=== PATIENT | female | born 1990 | race Caucasian/White ===

== ENCOUNTER 2024-02-22 13:54 | Outpatient (CLI) | payer MEDICAID, SELFPAY | END 2024-02-22 13:55 | disposition home or self-care (01) | LOC: NFLDREF 13:57 | PROVIDERS: Visit Provider Midwife | DX: E06.3 Autoimmune thyroiditis (principal) | CPT/HCPCS: 84443 ==

== ENCOUNTER 2024-03-16 12:16 | Outpatient (CLI) | payer MEDICAID, SELFPAY ==
[2024-03-16 12:35] VITALS: TEMP 36.7
[2024-03-16 12:41] VITALS: BP 99/58; PULSE 73
[2024-03-16 12:57] LABS: Amnisure Rom* Negative
--- NOTE | 2024-03-16 13:40 | PC.OBNST ---
NST Note NST Note Start: 03/16/24 11:25 Freq: ONCE Status: Complete Protocol: Document 03/16/24 13:20 PORTC (Rec: 03/16/24 13:40 PORTC Desktop) NST Note 3 Para (# of births) 2 EDC 06/16/24 Gestational Age In Weeks & Days 26 Weeks & 6 Days Patient Presented with Complaint(s) of Leaking fluid Reactive Yes Appropriate for Gestational Age Yes RN Drake Moss RN Date 03/16/24 Reactive Yes Appropriate for Gestational Age Yes THOMAS Orellana RN Date 03/16/24 OB NST charge Yes Complete NST Note via Write Note Yes The provider's electronic signature indicates the NST is reactive/appropriate for gestational age. *Note to provider: If an addendum is required, open the patient's chart and click on the note under the Nurse/Allied Health tab.
== END 2024-03-16 13:20 | disposition home or self-care (01) ==
LOC: OB OUT 12:16 → OB 12:16
PROVIDERS: Visit Provider Advanced Practice Midwife
DX: O47.02 False labor before 37 completed weeks of gestation, second trimester (principal); Z3A.26 26 weeks gestation of pregnancy
CPT/HCPCS: 59025; 84112; G0463

== ENCOUNTER 2024-03-21 13:15 | Outpatient (CLI) | payer MEDICAID, SELFPAY | END 2024-03-21 13:16 | disposition home or self-care (01) | PROVIDERS: Visit Provider Midwife | DX: Z34.92 Encounter for supervision of normal pregnancy, unspecified, second trimester (principal); Z3A.27 27 weeks gestation of pregnancy; E06.3 Autoimmune thyroiditis | CPT/HCPCS: 84439; 84443; 84481; 86376; 86592 ==

== ENCOUNTER 2024-05-12 10:01 | Outpatient (CLI) | payer MEDICAID, SELFPAY | END 2024-05-12 10:02 | disposition home or self-care (01) | LOC: NFLDREF 05-16 15:36 | PROVIDERS: PCP Midwife; Visit Provider Midwife | DX: E06.3 Autoimmune thyroiditis (principal) | CPT/HCPCS: 82728; 84439; 84443; 84481; 86376 ==

== ENCOUNTER 2024-05-22 13:36 | Outpatient (CLI) | payer MEDICAID, SELFPAY ==
[2024-05-23 14:13] LABS: Strep B DNA Probe Negative (Negative)
[2024-05-23 14:19] LABS: Strep B Susceptibility Needed? No
== END 2024-05-22 13:37 | disposition home or self-care (01) ==
LOC: NFLDREF 13:59
PROVIDERS: Visit Provider Obstetrics & Gynecology
DX: Z34.93 Encounter for supervision of normal pregnancy, unspecified, third trimester (principal); Z3A.36 36 weeks gestation of pregnancy
CPT/HCPCS: 87081; 87653

== ENCOUNTER 2024-06-20 10:32 | Inpatient (IN) | payer MEDICAID, SELFPAY ==
[2024-06-20] VITALS (12 sets, daily range): BP systolic 94–116; BP diastolic 56–78; PULSE 72–100; RESP 18; TEMP 36.3–36.4; O2SAT 98; BMI 37.4
[2024-06-20 11:28] LABS: Basophils Percent Auto 0.2 % (0.0-3.0); Eosinophils Percent Auto 0.2 % (0.0-7.0); Hematocrit 35.9 % (33.0-51.0); Immature Granulocytes Pct Auto 0.5 %; Lymphocytes Percent Auto 15.1 % (20-44); Mean Corpuscular HGB Conc 33 gm/dL (32-36); Mean Corpuscular Hemoglobin 31 pg (26-34); Mean Corpuscular Volume 94 fL (80-100); Monocytes Percent Auto 6.7 % (0.0-11.0); Neutrophils Percent Auto 77.3 % (42.0-72.0); Platelet Count* 143 K/uL (140-440); RDW Coefficient of Variation % 14.4 % (11.5-15.5); Red Blood Count 3.84 m/uL (4.00-5.20); White Blood Count* 12.75 K/uL (4.50-11.00)
--- NOTE | 2024-06-20 11:29 | W.PM.LDBA ---
Subjective History of Present Illness Narrative: Paige is a 33 yo ar 40 4/7 weeks gestation being admitted to Labor and Delivery for spontaneous onset of labor. She reports her labor started this morning after she woke up. She was seen in clinic yesterday for a clinic appointment and she had a membrane sweep. She said she didn't think she was in labor because she has never gone into labor on her own. She felt she had a period where they spaced out but then again are becoming more regular. She feels her bag of water is intact and denies any leaking or bleeding. She is coping well with labor. Her is supporting her in labor. Her full history and physical was dictated by QUENTIN Perales on 05/29/2024. Please see this for details. Specific Issues/Plans G 3 P 2 Partner:??Robert. Its a boy! Tx at 19.0 weeks from [facility] H&P completed by Lizandro SAAVEDRA 05/29/2024 ? #Hashimotos Thyroiditis History TSH, FT4, FT3 were normal 12/30.TPO was down to 59.7 from 148 4 mo ago. LEV 2 with MFM consult-completed with these recommendations: TSH/FT4/T3/TPO 2nd tri:0.742 TSH 23w4d, other labs pending. TSH 0.685, FT40.71, FT3 2.4, TPO 39.7 at 28w TSH/FT4/T3/TPO 34w: TSH 1.08, free T4 0.72, FT3 2.0L, TPO 24.6 EKG/Echo if continued lightheadedness/palpitations: [] Treat with levo if TSH outside of 0.3-4.0 per MFM: TSH at 3 and 6 mo PP: [] Repeat growth at 32w with MFM: Scheduled 04/21, records requested 04/24. Requested again 05/22/24: EFW 42nd percentile Weekly surveillance with poorly controlled thyroid levels # Hx hemorrhage (1100ml & 900ml?) Recommend AMTSL, IV, and TXA in the room at delivery, pt agreeable Blood transfusion after 1st delivery, desires Iron infusion over blood if needed #Hx breast reduction-really wants to BF this time. didn't try with 2nd d/t low supply with 1st, but when milk came in it was a lot more than prior. Wants to meet with antepartum ? OB Labs:?Initial 12/09/2023?? Blood type: A+, antibody screen negative.??? Hgb: 12.2??? Platelets: 162??? Rubella: [Immune]??? Varicella: 11/22/2023 Immune? RPR: non-reactive??? HBsAg: non-reactive??? Hep C: negative TSH: 12/31/23 1.6 LAST 05/12/24: 1.08 FT4:0.9 LAST 05/12/24: 0.72 T3: 165 LAST 05/12/24: 2.0 TPO:59.7?LAST 05/12/24: 24.6 HIV: negative??? Ferritin: 05/2023 47 UC: negative? GC/Chlamydia: negative/negative??? Pap : no hx of abnormal, was told at [place] not needed at [facility]?? Genetic screening: declined? IMAGING:??? 1st trimester: 11/08/2023 8w3d sliup with 2 small JB GUI 06/16/2023 12/09/23 13w3d sliup w/ small JB??? Lev 2 US: 02/04/2024: Normal findings 04/21/2024 f/u US 32w-Normal findings, fluid, growth. No further follow up needed. ? COVID:??declined Flu:???declined Tdap:???declined 32wk Mental Health:? 34wk hgb:??05/12/2024= 10.7 ?GBS negative OB - Problem Based A/P Additional Plan (1) Pain during labor: Status: Acute (2) 40 weeks gestation of : Status: Acute (3) History of hemorrhage, currently : Problem details: x2, with transfusion after first Status: Acute (4) H/O bilateral breast reduction surgery: Status: Acute (5) Matt's disease: Status: Acute Plan ASSESSMENT:? 33 yo at 40.4 weeks gestation? complicated by:?Matt thyroiditis history, hx of PPH, Hx of breast reduction Labor type: Spontaneous, Early labor? Category 1 FHR pattern.?? Labor complicated by: none? GBS negative? ? PLAN:? 1. Routine intrapartum cares as ordered. Continue with expectant management? 2. Monitoring per policy, intermittent? 3. Planning unmedicated . Desires water . Consent signed. Hep C negative. Candidate for analgesia of choice, if desired.?? 4. Patient encouraged to reposition and ambulate to promote physiologic labor and .? 5. Anticipate ? Delivery/Labor/Induction Plan Plan: expectant management OB Exam Physical Exam Vital signs: Pulse BP 81 116/69 06/20/24 10:09 06/20/24 10:09 Narrative: Vitals Reviewed Constitutional:? Alert and oriented x3 HEENT:? Normocephalic, atraumatic Neck:? Supple Lungs:? Clear to auscultation bilaterally Heart:? Regular rate and rhythm, no murmur, rub or gallop Abdomen:? Soft, nontender, and gravid. Vertex by Eze's, confirmed with cervical exam. Extremities:? No edema or erythema Cervix: 6 cm/90%/-1 station/vertex per RN NST: 130 bpm/moderate variability/15x15 accelerations/no decelerations/contractions every 1-5 minutes lasting 60-90 seconds Detailed Labor and Delivery Exam Patient Gravid: Yes
[2024-06-20 11:33] LABS: Slide Review Reflex No
[2024-06-20] MEDS: OXYTOCIN 30 unit/500 ML in NS 30 UNIT/500 ML BAG 300 UNIT IVPB (14:15)
--- NOTE | 2024-06-20 14:41 | W.PM.OBVAGDE ---
OB Procedure Vag Delivery Mother Details Mother Details: The patient is a 33 year-old, 3, Para 2, admitted on 06/20/24 at 40.4 weeks gestation. : 3 Para: 3 Weeks Gestation: 40.4 Admission Date: 06/20/24 Additional Details Amniotic Membrane Status: AROM Amniotic Membrane Rupture Date: 06/20/24 Amniotic Membrane Rupture Time: 12:28 Amniotic Membrane Fluid Description: Clear Analgesia/Anesthesia Type: None Waterbirth: Yes Pitcoin: Yes (AMTSL) Intrapartal Events: Excessive Bleeding (PPH >1000) Labor Onset: 10:00 Complete: 13:56 Pushin:56 Heart: heart tones during second stage were intermittently auscultated once, but difficult due to maternal position. She progressed quickly to delivery in this stage. Delivery Details Delivery Date: 06/20/24 Delivery Time: 14:04 Route of delivery: Infant Gender: Male Infant Viability: Alive; Heart Rate Present Position at Delivery: OA Delivery Details: Patient was admitted for spontaneous onset of labor and progressed normally. AROM noted at 1228 with clear fluid. She entered the tub for labor pain management. Patient was assumed complete with pushing at 1356. of a viable male at 1405 squatting in the tub. Vertex delivered OA. No nuchal cord or shoulder. Body delivered easily and without incident. Infant passed between mothers legs to dad's hands and he assisted patient to bring baby to her upper abdomen/chest with a vigorous cry, RN was nearby for assistance as needed. Cord was clamped and cut at > 5 minutes. APGARS were 8 at one minute and 9 at five minutes respectively. Mouth was bulb suctioned. Patient had some intense cramping in the tub and increased bleeding was noted and she requested to get out. was taken to the warmer and she was assisted from the tub to the bed. Large clots passed on transfer from the tub to the bed and a few additional large clots with delivery of the placenta. Intact placenta with a 3 vessel cord delivered spontaneously at 1415. Fundus firm. Bleeding resolved with delivery of the placenta. IV pitocin given for AMTSL. TXA was available at bedside but because bleeding resolved after placenta it was held. Perineal 1st degree identified, hemostatic and well approximated so mutual decision made to not repair. QBL 1000 cc, EBL 300 from the tub. Mother and baby stable; mother plans to breastfeed. weight pending. 1 Minute Interval Total Score: 8 5 Minute Interval Total Score: 9 Additional Details Shoulder Dystocia: No Placenta Delivery Time: 14:15 Placental Delivery Description: Spontaneous Delivery repair: Vicryl Procedure Done: Global Blood Loss: 1,300 (QBL + EBL) Laceration: Perineal - 1st Degree (Not repaired) Blood Loss Measurement Type: QBL Bakri Used: No Sponge/Need Count Correct: Yes Cord Vessel Description: 3 Vessels Event Summary Status: Mother and infant were stable after delivery. Disposition: floor
[2024-06-20] MEDS: IBUPROFEN 600 MG TABLET PO (18:36)
[2024-06-21 00:57] VITALS: BP 109/76; PULSE 77; RESP 16; TEMP 36.6; O2SAT 98
[2024-06-21] MEDS: IBUPROFEN 600 MG TABLET PO ×2 (00:59→08:42)
[2024-06-21 05:33] VITALS: BP 92/60; PULSE 82; RESP 16; TEMP 36.6; O2SAT 98
[2024-06-21] MEDS: ACETAMINOPHEN 500 MG TABLET 1000 MG PO (05:57)
[2024-06-21] MEDS: DOCUSATE SODIUM 100 MG CAPSULE PO (08:43)
[2024-06-21 09:42] VITALS: BP 102/77; PULSE 99; RESP 16; O2SAT 98
--- NOTE | 2024-06-21 10:45 | PM.OBDSVD1 ---
DS: Providers Provider Date Seen: 06/21/24 Date of admission: 06/20/24 10:32 Primary care physician: Not a Local Provider Admitting Clinician: Debra Bardales CNM Attending Physician on discharge: Layo Allen CNM Date of Discharge: 06/21/24 DS: Diagnosis Discharge Diagnosis (1) care and examination of lactating mother: Status: Acute (2) hemorrhage, delivered, current hospitalization: Status: Acute Exam Narrative: Exam Narrative: VSS, afebrile GENERAL APPEARANCE: ?normal affect, alert, no distress MOOD: ?appropriate HEENT: normocephalic, neck supple, full ROM CHEST: ?Symmetrical chest wall movement. ?Normal respiratory effort. ?Clear to auscultation HEART: ?regular rate and rhythm ABDOMEN: ?soft, non-tender. Uterine fundus is firm, at Umbilicus, Midline and is appropriate for the stage of recovery. ?Bowel sounds present. PERINEUM: ?mild edema of the perineum, there is a 1st degree laceration that is healing well. EXTREMITIES: ?normal and no edema Const: Vital Signs, click to edit/add: Vital Signs - 24 hr 06/20/24 14:18 06/20/24 14:34 06/20/24 14:49 Temperature Pulse Rate 78 99 90 Pulse Rate [Pulse Oximeter] Respiratory Rate Blood Pressure 108/56 L 110/58 L 102/63 Blood Pressure [Le ft Arm] Pulse Oximetry [facility] 06/20/24 15:04 06/20/24 15:19 06/20/24 15:35 Temperature Pulse Rate 79 97 91 Pulse Rate [Pulse Oximeter] Respiratory Rate Blood Pressure 106/70 112/78 102/77 Blood Pressure [Le ft Arm] Pulse Oximetry Oxygen Delivery [facility] 06/20/24 15:49 06/20/24 16:06 06/20/24 16:20 Temperature Pulse Rate 81 72 100 Pulse Rate [Pulse Oximeter] Respiratory Rate Blood Pressure 103/66 106/67 108/69 Blood Pressure [Le ft Arm] Pulse Oximetry Oxygen Delivery [facility] 06/20/24 19:59 06/21/24 00:57 06/21/24 05:33 Temperature 97.3 F L 98 F 98 F Pulse Rate Pulse Rate [Pulse Oximeter] 88 77 82 Respiratory Rate 18 16 16 Blood Pressure Blood Pressure [Le ft Arm] 94/66 109/76 92/60 Pulse Oximetry 98 98 98 Oxygen Delivery Me thod Room Air Room Air Room Air 06/21/24 09:42 Temperature Pulse Rate Pulse Rate [Pulse Oximeter] 99 Respiratory Rate 16 Blood Pressure Blood Pressure [Le ft Arm] 102/77 Pulse Oximetry 98 Oxygen Delivery Me thod Room Air Documenting provider has reviewed patient's vital signs: yes OB - DS: Summary Hospital Course Hospital Course: Paige is a 33 y.o. who was admitted to L & D for labor. ?She had an uncomplicated NVD with a hemorrhage controlled with medications.?The patient feels well. ?The pain is well controlled with current medications. ?She has no new complaints. ?She is breast feeding and reports things are going well.? the patient has done well.? Vitals have been stable.? She has remained afebrile.? Has a good appetite, is tolerating a general diet. ?She is voiding without difficulty.? She is passing gas and has not had a bowel movement.? She is ambulating and denies any dizziness.? Has Small amount of rubra lochia. ?She is planning partner vasectomy for prevention. Peripartum Data Infant delivery method: Vaginal Laceration description: Perineal - 1st Degree complications: none [place] Gender: Male Discharge Plan: Home Status at Discharge Functional status at discharge: independent ambulation Overall status at discharge: patient is progressing back to baseline Time Spent with Patient Time attestation: Total time spent providing and/or coordinating discharge services: Time spent: Less than 30 minutes Discharge Plan Discharge Disposition: Home, Self-Care Date of Admission: 06/20/24 10:32 Attending Provider on Discharge: Layo Allen Primary Care Provider: Provider,Not a Local Condition: Stable Anticipated Discharge Date/Time: 06/21/24 12:00 Discharge Medications: New acetaminophen 500 mg Tablet 1,000 mg PO Q6H PRNQty: 0 0RF docusate sodium 100 mg Capsule 100 mg PO DAILY Qty: 90 0RF ibuprofen 600 mg Tablet 600 mg PO Q6H PRNQty: 60 0RF ferrous sulfate 324 mg (65 mg iron) tablet,delayed release (DR/EC) 324 mg PO Q OTHER DAY Qty: 30 2RF Continued DHA 200 mg capsule 200 mg PO DAILY omega-3 fatty acids 500 mg capsule 500 mg PO QDAY Discharge Orders: Discharge Order (Routine); Ordered 06/21/24 Ordered By: Layo Allen Patient Education: OB Over the Counter Medication Information, OB Vaginal/Breast Feeding Additional Instructions: Discharge instructions were reviewed with the patient including signs and symptoms of infection and home going medications Nothing vaginally for 6 weeks: no tampons or intercourse Off Work or School for 6 weeks 2-week visit: discuss infant feeding concerns, review control options and screen for anxiety/depression. 6-week visit for an annual exam. consultation services are available to all mothers and babies for the first year after delivery.? To make an appointment, please call [phone]. Activity Level: Activity as Tolerated Discharge Diet: Regular Follow Up Appointments: [facility] [Provider Group] Forms: t-[employer] Info Instructions
[2024-06-21 14:17] VITALS: BP 100/71; PULSE 87; RESP 18; O2SAT 98
[2024-06-22 02:30] LABS: Rapid Plasma Reagin (RPR) Non Reactive (Non Reactive)
== END 2024-06-21 16:40 | disposition home or self-care (01) | DRG 806 ==
LOC: OB OUT 10:32 → OB 10:32
PROVIDERS: Admitting Provider Advanced Practice Midwife; Visit Provider Advanced Practice Midwife
DX: O48.0 Post-term pregnancy (principal); O72.1 Other immediate postpartum hemorrhage; O70.0 First degree perineal laceration during delivery; O99.284 Endocrine, nutritional and metabolic diseases complicating childbirth; E06.3 Autoimmune thyroiditis; Z3A.40 40 weeks gestation of pregnancy; Z37.0 Single live birth
CPT/HCPCS: 36415; 85018; 85025; 86592; 86850; 86900; 86901; A9270

== ENCOUNTER 2024-06-23 11:05 | Outpatient (CLI) | payer MEDICAID, SELFPAY ==
--- NOTE | 2024-06-23 12:46 | W.PM.LAC.MC ---
Consult Note - Mom Date of Visit Date of visit: 06/23/24 Reason for consultation: Assistance Needed and Low Milk Supply Visit Code: Visit Patient's Information Phone number: [phone] : 3 Para: 3 Allergies No Known Drug Allergies Allergy (Verified 06/19/24 12:48) Mother's medical history: Post hemorrhage (1300ml blood loss) Mother's Medical History: Medical History (Updated 06/21/24 @ 10:47 by Layo Allen CNM) disorder ?O92.70 - Unspecified disorders of (ICD-10) Matt's disease ?E06.3 - Autoimmune thyroiditis (ICD-10) hemorrhage ?O72.1 - Other immediate hemorrhage (ICD-10) history of breast reduction did not develop a milk supply with first child; tried for 3 weeks. Baby born during COVID and mom not sure if she could've done more to develop a supply did not try to breastfeed her 2nd due to stress of first would like to try and breastfeed with this baby she did have some breast changes with : tender and slight enlargement Delivery Information Delivery type: Vaginal Gestational Age: 40+4 Gestational Weight For Age: AGA Weight: 4.02 kg Discharge Weight: 3.82 kg Percentage weight loss: 5 Baby's Information Baby's Age at Visit: 3 days Baby's Provider or Clinic: [facility], Dr. Monique Jaundice: No Past Experience Past Experience: Yes Current Frequency of Day Feedings: every 2.5-3 hours, needs waking for most feedings Frequency of Night Feedings: same Both Breasts: Yes Suck: strong Latch: mostly comfortable, needs help unlatching Length of Time: 15 min ea side, might go longer if mom let him Goals: not sure, depends on milk production status Pumping Pumping: No Quantity Pumped: Has a Mom Cozy M5 Supplementing EBM Supplement: No Formula Supplement: No Baby Elimination Number of Wet Diapers a Day: hard to tell; had 1 large one here in office Number of BM a Day: 3 in the last 24 hrs; had one here in office; dark green and thin Breast/Nipple Condition Breast Information: Breasts are symmetrical with rounded lower quadrants, intramammary distance is less than 1.5 inches. No erythema. Nipples are supple, everted prior to feeding. Nipples measure 20-21mm; recommend 24mm flange size for pumping Breast Shape: Round Engorgement: No Maternal Nipple Condition - Left: Common Nipple Maternal Nipple Condition - Right: Common Nipple Sore Nipples: Yes Baby Assessment Skin: Normal Tongue/frenulum: Normal/elastic Palate: Average Lips: Relaxed and Other (dry) Jaw Alignment: Symmetrical Mucosa: [place], moist Onsite Observation Pre-Feed weight: 3.572 kg (11.2% loss from ) Post-Feed weight: 3.576 kg Milk Transferred (mL): 4 (2ml transferred from ea breast; then took 30ml Similac formula here in office via paced bottle feed) Position: Football Attachment/latch-on achieved: Easily Suck pattern: Extended suck phase Swallow: Occasionally Behavior following feed: Alert, fussy Pre-Nursing Left Nipple: Within Normal Limits Pre-Nursing Right Nipple: Within Normal Limits Post-Nursing Left Nipple: Within Normal Limits Post-Nursing Right Nipple: Within Normal Limits Assessments/Interventions Assessments/Interventions: observation: Babe latches well; wide, deep latch that is comfortable per mom Nipple is rounded when baby comes off breast Able to hand express drops of milk Education provided: Early feeding cues to maximize timing of latching, Asymmetric latch technique for wide/deep latch to increase milk, Transfer for baby and increase comfort for mom, Supply/demand nature of milk supply, Sore nipple treatment options (nipple cream, hydrogel pads), Hand expression, Alternative feeding methods (SNS, cup, finger feeding, bottling) (paced bottle feeding), Pumping for milk management and Milk collection, storage Handouts Provided: Paced bottle feeding Triple feeding plan Feeding Plan: Breastfeed for 10 on each breast, listening for active swallowing Pump both breasts for: 15? minutes a Feed baby 30-60 ml of pumped milk and/or formula every 2-3 hours based on feeding cues Use a syringe/feeding tube, cup, or bottle for feedings based on preference-paced bottle feeding discussed and demonstrated here in office Rest, and repeat every 2-3 hours, watch for early feeding cues Try skin to skin to increase milk production Follow-Up Suggested follow up: Phone call in 24-48 hours (phone call in 3 days to eval progress) and Appointment in 1 week Time Spent Time spent with patient (min): 90 (face to face with patient and baby) Meds Home Medications and Allergies Home Medications ?Medication ?Instructions ?Recorded ?Confirmed ?Type docosahexaenoic acid 200 mg 200 mg PO DAILY 01/21/24 06/20/24 History capsule ( DHA) omega-3 fatty acids 500 mg capsule 500 mg PO QDAY 01/21/24 06/20/24 History Allergies Allergy/AdvReac Type Severity Reaction Status Date / Time No Known Drug Allergies Allergy Verified 06/19/24 12:48
== END 2024-06-23 11:06 | disposition home or self-care (01) ==
LOC: OB LAC 11:06
PROVIDERS: Visit Provider Obstetrics & Gynecology
DX: Z39.1 Encounter for care and examination of lactating mother (principal)
CPT/HCPCS: G0463

== ENCOUNTER 2024-09-14 11:18 | Outpatient (CLI) | payer MEDICAID, SELFPAY ==
[2024-09-16 20:25] LABS: HPV Source Cervical; HPV, High Risk by TMA Not Detected
== END 2024-09-14 11:19 | disposition home or self-care (01) ==
PROVIDERS: Midwife; Visit Provider Advanced Practice Midwife
DX: E06.3 Autoimmune thyroiditis (principal); Z12.4 Encounter for screening for malignant neoplasm of cervix; Z11.51 Encounter for screening for human papillomavirus (HPV)
CPT/HCPCS: 84439; 84443; 87624; 87625; 88141; 88142

== ENCOUNTER 2024-09-19 13:10 | Outpatient (CLI) | payer MEDICAID, SELFPAY ==
--- NOTE | 2024-09-19 13:15 | CRLHL7_ITS ---
For Patients: As a result of the Century Cures Act, medical imaging exams and procedure reports are released immediately into your electronic medical record. You may view this report before your referring provider. If you have questions, please contact your health care provider. INDICATION: Enlarged thyroid, low TSH COMPARISON: none TECHNIQUE: Monsivais scale and color Doppler images were acquired of the thyroid gland. FINDINGS: The thyroid gland demonstrates diffusely heterogeneous echogenicity and has a smooth lobular outer contour. The right lobe measures 5.2 x 1.7 x 1.7 cm and the left lobe measures 5.8 x 1.6 x 1.4 cm in size. Isthmus measures 8 millimeters. The color Doppler images demonstrate diffusely increased vascularity. There is no evidence of cervical lymphadenopathy or parathyroid mass. Normal left cervical lymph node measures 11 x 9 x 9 millimeters. IMPRESSION: Diffusely heterogeneous and hypervascular thyroid. No thyroid nodule. Dictated by Vitor Muñoz MD @ 09/19/2024 4:08:11 PM (Electronically Signed)
== END 2024-09-19 13:11 | disposition home or self-care (01) ==
LOC: US 13:11
PROVIDERS: Visit Provider Midwife
DX: E04.9 Nontoxic goiter, unspecified (principal); R79.89 Other specified abnormal findings of blood chemistry
CPT/HCPCS: 76536

== ENCOUNTER 2024-10-16 08:30 | Outpatient (RCR) | payer MEDICAID, SELFPAY ==
--- NOTE | 2024-10-02 14:44 | PT.OPEX ---
PT [place] Outpatient Eval PT [facility] Outpatient Eval Start: 10/02/24 07:34 Freq: Status: Active Protocol: Document 10/02/24 14:42 SALVATORE (Rec: 10/02/24 14:43 SALVATORE [id number]) E-signed By Ene Cheung, PT Physical Therapy Outpatient Evaluation Insurance Information Recert Due Date 12/31/24 Insurance Name Medicaid,[employer] Medical Diagnosis abdominal wall separation, pelvic floor weakness Treating Diagnosis pelvic floor weakness Referring MD Layo Allen Subjective Subjective Paige is a coming to therapy pp from delivery on c first degree tear with tub . This is her third child. She is no longer . She is walking with a little bit of exercise but nothing consistent. She leaks with sneezing. She has urgency with voiding. She only feels it when she is overfilled. Urinates 4x/day. [place] stool scale 1 or 3, goes approx daily. Does strain with bowel movements. She drinks about 30 oz per day, water only. She is a SAHM, ages 5, 3, and 4 months. Fecal urgency is newer. Initially felt heaviness in pelvis. It has improved. Baby is a good sleeper. She has lower back pain, returning to stand from bending over is painful. She has her menstrual return. 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 Precautions/ Contraindications Therapy Limitations/ Not Limited Systems Review Objective Other/Pertinent Pelvic Floor Assessment: Objective Bladder hx: dehydrated, voids 4x/day Bowel Hx: [place] stool scale 1, 3 c daily small output Pelvic hx: no reported issues / hx: 3rd , pain during c weak hips. Breathing: chest/neck breathing Pressure management: impaired with transfers [place]: 4 finger widths separation at umbilicus, supra 3 fingers widths, infra 2 Posture Assessment: APT in standing TA strength: fair LUMBAR ROM Flexion: WNL, pain on return Extension: hinged at L3 Right Sidebend: WNL Left Sidebend: WNL LE MMT Hip flexion: R 5/5 L 5/5 Hip Extension: R 3/5 L 3/5 Hip abduction: R 3/5 L 3+/5 knee extension: R 5/5 L 5/5 Knee Flexion: R 5/5 L 5/5 JOINT MOBILITY/PALPATION SPECIAL TESTS Straight leg raise: posterior pelvic tilt Assessment Assessment/ Pt is a 33 yr old female c a hx of 3 pregnancies and Impression vaginal deliveries. She has decreased core strength and increased separation of linea alba, especially umbilical. She has lumbar instability c increased APT and lengthening RA. She has decreased gluteal, hip rotator, and hip abd strength R>L. She is increased in pain with flexion and return to standing postures. She does have constipation, urinary leakage, and dehydrated status. She would benefit from lifestyle education, core/pelvic floor coordination, and strengthening program. Plan of Care Rehabilitation Good Potential Physical Therapy Pt will demonstrate indep c knack in 4 weeks to Goals improve continence c cough/sneeze. Pt will demonstrate pelvic floor coordination for lift and draw in at 3/5 MMT for improved muscle activation for continence in 8 weeks. Pt will demonstrate pressure management techniques with Transverse abdominus and exhale on dynamic standing in 12 weeks. Pt will report 50% reduction in urinary leakage in 8 weeks for improved QOL. Pt will be indep c 360 breathing in 4 weeks to improve coordination of deep core. Pt will be indep c pressure management strategies to improved strain on abdomen in 12 weeks. Pt will demonstrate neutral posture c IADLs to improve contractility of abdominal wall in 5 weeks. Treatment Plan/ Electrical Stimulation,Gait Training,Heat,Ice/Cold/ Direct Interventions Vasopneumatic,Manual Therapy,Neuromuscular Re-ed,Self- Care/Home Management,Therapeutic Activities,Therapeutic Exercises,Traction (Mechanical) Frequency/Duration weekly for 12 weeks Patient Will Be Completion of LTG(s),Skills Plateau,Independent w/HEP, Discharged From Independently Progressing Therapy Evaluation Billing Untimed Code 35 Treatment Minutes PT Eval No Charge No Complexity Low Certification Information Initial 10/02/24 Certification Date Ending Certification 12/31/24 Date Provider Signature Yes Required Provider Signature POC & Medical Necessity Shows Agreement With Physician NPI Number Write NPI# Here Physician Comment/ : Change Physician Signature Please Sign/Date Here & Date Requested
== END 2025-02-13 23:59 | disposition home or self-care (01) ==
PROVIDERS: Visit Provider Advanced Practice Midwife
DX: M62.08 Separation of muscle (nontraumatic), other site (principal); N81.89 Other female genital prolapse; Z51.89 Encounter for other specified aftercare
CPT/HCPCS: 97110; 97161